=== PATIENT | male | born 1970 | race Caucasian/White ===

== ENCOUNTER 2019-04-21 09:32 | Emergency (ER) | payer OTHER, SELFPAY ==
[2019-04-21 09:37] VITALS: BP 131/79; PULSE 73; RESP 16; TEMP 36.7; O2SAT 98
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
== END 2019-04-21 10:21 | disposition home or self-care (01) ==
PROVIDERS: Emergency Provider Student in an Organized Health Care Education/Training Program; PCP Family Medicine
DX: T22.231A Burn of second degree of right upper arm, initial encounter (principal); T59.891A Toxic effect of other specified gases, fumes and vapors, accidental (unintentional), initial encounter; Y99.0 Civilian activity done for income or pay
CPT/HCPCS: 99282

== ENCOUNTER 2020-05-03 09:16 | Day surgery (SDC) | payer BC, SELFPAY ==
--- NOTE | 2020-05-03 06:55 | COLE_ITS ---
Date of service: 05/03/20 Time of Service: 10:15 Colonoscopy Report Date of procedure: 05/03/20 Pre-op diagnosis general: screening colonoscopy Post-op diagnosis procedure note: same Procedure: Colonoscopy Surgeon: Rita Mishra Anesthesia proc note operative: other (General/ASA 1/Nick Sanchez, CECELIA) Estimated blood loss (mL): 0 Pathology: none sent Complications: None Disposition: same day Indications: The patient is here for Colonoscopy pre-op. He has no family history of colon cancer. He has not had any bowel habit changes. -Discussed colonoscopy bowel prep as well as the procedure. Discussed possible complications of the procedure to include bleeding, pain, perforation, missed small lesion/polyp, sore throat, aspiration and adverse reaction to the medications. Questions were answered to patient?s satisfaction. No guarantees were implied or given. Prep: Miralax/Dulcolax Procedure Start Time: 10:15 Procedure End Time: 10:37 Retraction Time: 15 minutes Findings: Normal Colonoscopy Procedure Description: After informed consent was obtained the patient was taken to the procedure room and placed in a left decubitous position. Monitors were applied and a time out was done. The patients name, date of , proc edure, allergies to medications and metal in their body was reviewed. The patient was then sedated. Once sedated and comfortable a rectal exam was done. External exam was normal. Internal exam revealed a normal sphincter tone and no palpable masses. The prostate felt smooth. The scope was then introduced and retro-flexed. No internal hemorrhoids were identified. The scope was then advanced to the cecum without difficulty. The ileocecal valve and appendiceal orifice were identified. The prep was adequate. The scope was then slowly retracted over 15 minutes back into the rectum. There were no polyps and no diverticula. The scope was removed and the patient was woken up and taken back to Same day surgery in stable condition. The patient tolerated the procedure well and there were no immediate complications. Follow up: The patient should follow up in 10 years unless they develop changes in bowel habits or other new gastrointestinal complaints.
--- NOTE | 2020-05-03 06:57 | W.PM.DSUDISC ---
Discharge Plan Disposition Patient Disposition: HOME Condition: Good Discharge Details Reason For Visit: Colonoscopy Attending Provider: Rita Mishra Primary Care Provider: Madelyn Hutson Home Meds and New Rx's Prescriptions: Continued ibuprofen [Advil] 200 MG tablet 1 tab PO PRN PRNRF: 0 Discontinued polyethylene glycol 3350 17 gram/dose powder 238 g PO ONCE Qty: 238 RF: 0 bisacodyl [Dulcolax (bisacodyl)] 5 mg tablet,delayed release (DR/EC) 5 mg PO ONCE Qty: 4 RF: 0 Discharge Instructions Additional Instructions: Findings: Normal colonoscopy Follow up: 10 years Please call if you develop: fevers >101.5 Nausea or Vomiting Abdominal pain that is not transient DAY SURGERY UNIT POST ENDOSCOPY INSTRUCTIONS 1. Because there will be medication in your system for the next 24 hours, you may feel a little sleepy. Your coordination will be affected. Therefore: a. Do not drive or operate dangerous equipment for 24 hours. b. Do not drink alcohol beverages for 24 hours (not even beer). c. Plan to go home and rest for the day. 2. Generally there are no restrictions on your activity after a day or so has gone by, but you may feel a bit fatigued for a few days. 3 After you arrive home you may have a light meal and return to a normal diet as you can tolerate it without feeling sick to your stomach. 4. After surgery, you may feel pain or discomfort. This should be only transient, but if it persists please contact your doctor. 5. If there are any questions regarding the findings of your procedure, please feel free to contact your doctor. 6. If you are unable to contact your doctor with a problem, contact the hospital at [phone]. 7. Continue all your regular medications unless directed otherwise. I understand the above instructions and have no questions. Signature of Patient or Responsible Adult Escort Date/Time Name of Responsible Adult Escort Signature of Nurse Date/Time Stand Alone Forms: Mary Almodovar (DSU) Activity:: Activity as Tolerated Diet:: As Tolerated Discharge Orders Discharge Orders: Discharge Order (Routine); Ordered 05/03/20 Ordered By: Rita Msihra
[2020-05-03 09:18] VITALS: BP 129/79; PULSE 70; RESP 20; TEMP 37.1; O2SAT 96
[2020-05-03] MEDS: Lactated Ringers 1,000 ML 80 ML IV (09:37)
[2020-05-03 11:10] VITALS: BP 116/58; PULSE 58; RESP 18; TEMP 36.7; O2SAT 99
== END 2020-05-03 11:20 | disposition home or self-care (01) ==
LOC: SUR 09:16
PROVIDERS: Visit Provider Surgery
PROC: 0DJD8ZZ Inspection of Lower Intestinal Tract, Via Natural or Artificial Opening Endoscopic (ICD-10-PCS; CPT 45378; principal; 2020-05-03 10:45)
DX: Z12.11 Encounter for screening for malignant neoplasm of colon (principal)
CPT/HCPCS: 45378; J2001

== ENCOUNTER 2021-05-06 01:52 | Outpatient (CLI) | payer BC, SELFPAY ==
[2021-05-06 09:40] LABS: ALT 31 U/L (16-63); AST 17 U/L (15-37); Albumin 4.3 g/dL (3.4-5.0); Alkaline Phosphatase 67 U/L (46-116); Anion Gap 9.6 mmol/L (3-11); BUN 18 mg/dL (7-18); CO2 28.4 mmol/L (21.0-32.0); CREATININE 1.1 mg/dL (0.70-1.30); Calcium 8.7 mg/dL (8.5-10.1); Calculated LDL 94 mg/dL (<100); Chloride 105 mmol/L (98-107); Cholesterol 152 mg/dL (<200); Glucose 94 mg/dL (74-106); HDL Cholesterol 43 mg/dL (40-60); Potassium 4.6 mmol/L (3.5-5.1); Sodium 143 mmol/L (136-145); Total Protein 6.9 g/dL (6.4-8.2); Triglyceride 77 mg/dL (<150)
== END 2021-05-06 01:53 | disposition home or self-care (01) ==
LOC: LBO 01:52
DX: Z13.220 Encounter for screening for lipoid disorders (principal); Z00.00 Encounter for general adult medical examination without abnormal findings
CPT/HCPCS: 36415; 80053; 80061

== ENCOUNTER 2021-05-06 02:29 | Outpatient (CLI) | payer BC, SELFPAY ==
--- NOTE | 2021-05-06 06:45 | DI.RAD_ITS ---
Exam(s) XR SHOULDER LT COMPLETE 2+V EXAM: XR SHOULDER LT COMPLETE 2+V CLINICAL HISTORY: pain with radiating numbness and tingling,M25.512. TECHNIQUE: 2D digital imaging was performed of the left shoulder. Five images were obtained. AP in ternal and external, Grashey, Y-view and axillary views were obtained. COMPARISON: No exams were available for comparison FINDINGS: BONES: No acute fracture is present. No bony destructive lesion is seen. JOINTS: No dislocation present. Mild degenerative changes are seen at the acromioclavicular joint. SOFT TISSUE: Normal. IMPRESSION: Mild degenerative changes of the AC joint. DATA REPOSITORY: RADIATION DOSE DELIVERED:
== END 2021-05-06 02:49 ==
DX: M25.512 Pain in left shoulder (principal); M19.012 Primary osteoarthritis, left shoulder
CPT/HCPCS: 73030

== ENCOUNTER → 2022-01-06 15:44 | Outpatient (CLI) | payer OTHER, SELFPAY ==
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
== END ==
PROVIDERS: Visit Provider Family Medicine
DX: M25.561 Pain in right knee (principal); M25.461 Effusion, right knee; M77.8 Other enthesopathies, not elsewhere classified
CPT/HCPCS: 73562

== ENCOUNTER → 2022-01-20 00:46 | Outpatient (CLI) | payer OTHER, SELFPAY ==
--- NOTE | 2022-01-20 07:45 | DI.MRI_ITS ---
Exam(s) MR LOWER JOINT RT WO EXAM: MR LOWER JOINT RT WO CLINICAL HISTORY: pain, decrease ROM, moderate effusion,injury,? meniscal injury,m25.561, TECHNIQUE: Multiplanar multisequence MRI was performed.. COMPARISON: No exams were available for comparison FINDINGS: MR examination of the knee was performed according to the usual protocol. There is a moderate-sized knee joint effusion period. . Medial tibiofemoral joint: The articular cartilage of the femur and tibia appears mildly thinned. Th ere are moderate marginal osteophytes. There are some vertical clefts of the articular cartilage of the medial femoral condyle centrally period. The meniscus is deficient presumably representing a chr onic tear and the meniscus is displaced peripherally period. The medial collateral ligament appears intact. No posteromedial corner injury seen. Lateral tibiofemoral joint: The articular cartilage of the femur and tibia appears mildly thinned. T he meniscus and attachments appear intact. The lateral collateral ligament complex and posterolatera l corner structures appear intact. Patellofemoral joint and extensor mechanism: The articular cartilage of the patellofemoral joint is m arkedly abnormal with large bare areas of the lateral aspect of the patella and to a lesser degree of the medial aspect of patella. Trochlear cartilage is thinned and irregular. There is abnormal subc hondral marrow signal of the trochlea and patella. There is minimal lateral subluxation of the licea la. There are prominent marginal osteophytes of the patella and femur period. The superior and infe rior patellar fat pads show abnormal signal. There is an apparent small loose osseous body in the kn ee joint anteriorly.. The quadriceps tendon and patellar tendon appear intact with no evidence of a tear or significant shauna ma. The medial and lateral retinacula appear intact. Cruciate ligaments: Cruciate ligaments and attachments appear normal with no evidence of a tear. Tibiofibular joint: No specific abnormality involving the tibiofibular joint. IMPRESSION: Severe DJD of patellofemoral joint. Moderate degenerative changes of medial tibiofemoral joint. Medial meniscal chronic tear with deficient meniscus. Mild DJD medial tibiofemoral joint. 10 millimeter diameter loose joint body projected anterior to the intercondylar eminence of the tibia . DATA REPOSITORY:
== END ==
PROVIDERS: Visit Provider Family Medicine
DX: M23.91 Unspecified internal derangement of right knee (principal); M17.11 Unilateral primary osteoarthritis, right knee; S83.241A Other tear of medial meniscus, current injury, right knee, initial encounter; M23.41 Loose body in knee, right knee; X58.XXXA Exposure to other specified factors, initial encounter
CPT/HCPCS: 73721

== ENCOUNTER 2024-01-12 05:01 | Emergency (ER) | payer BC, SELFPAY ==
[2024-01-12] VITALS (27 sets, daily range): BP systolic 92–148; BP diastolic 62–108; PULSE 56–75; RESP 9–18; TEMP 36.3; O2SAT 93–97
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
--- NOTE | 2024-01-12 05:18 | W.ED.GENAD ---
Discharge Plan Discharge Details Chief Complaint: Nk/Back Pain Clinical Impression: Back pain Primary Care Provider: Dandy Faust ED Provider: Thanh Fortune Home Meds and New Rx's Prescriptions: No Action ibuprofen [Advil] 200 MG tablet 1 tab PO PRN PRN HPI General Date/Time Provider Initiated Documentation: 01/12/24 05:04. HPI Narrative: This is a pleasant 53-year-old male with no significant past medical history who presents today for evaluation of back pain. Patient states that 2 and half days ago he was lifting up his 4 garrison while also twisting and heard a snap and pop in his right lower back. He had immediate pain. 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 The pain continued to worsen. It is worsened with any type of movement. It is worsened with movement of his legs. He describes it as a aching throbbing Dulle pain in his right lower back. Patient denies any saddle anesthesia, numbness or tingling in the groin, change in sensation when wiping. Patient denies any change in sensation during sexual intercourse, difficulty achieving or maintaining an erection or ejaculation, bowel or bladder incontinence, leakage, or retention. Patient denies any weakness in the lower extremities, atypical falls or imbalance. He has been taking Tylenol and Motrin but this has not been helping the pain at all. He denies any other complaints at this time. No other modifying factors. Related Data Home Medications Medication Instructions Recorded Confirmed ibuprofen 200 mg tablet (Advil) 1 tab PO PRN PRN 05/10/15 01/12/24 Allergies Allergy/AdvReac Type Severity Reaction Status Date / Time No Known Allergies Allergy Verified 01/12/24 05:13 General Stated Complaint: Nk/Back Pain NAVIN: 3 Review of Systems All systems reviewed & are unremarkable except as noted in HPI and below Exam Narrative Exam Narrative: 1.Const: Well-nourished, Well-developed, appearing stated age 2.Eyes: PERRL, no conjunctival injection, and symmetrical lids. 3.ENT: Atraumatic external nose and ears. Moist MM. Neck: Symmetric, trachea midline, No thyromegaly. 4.CVS: +S1/S2, No murmurs or gallops. Peripheral pulses 2+ and equal in all extremities. Brisk capillary refill in all extremities. 5.RESP: Unlabored respiratory effort. Clear to auscultation bilaterally. No wheezes rales or rhonchi 6.GI: Soft, Nontender/Nondistended, No hepatosplenomegaly. No guarding or rebound. 7.MSK: Normocephalic/Atraumatic, Extremities w/o deformity or ttp No cyanosis or clubbing, Normal movement of all extremities. No midline tenderness to palpation over the CTLS spine. Pain in the lower back slightly improved with palpation of the paraspinal musculature, paraspinal musculature on the right is notably tense and spasmed. Particularly around no to L3 and L4 normal ROM in flexion, extension, side bend, and rotation. Patient has +5 out of 5 strength in the lower extremities in dorsiflexion and plantarflexion, knee flexion and extension, hip flexion and extension. Normal strength for dorsiflexion and plantar flexion of the great toe bilaterally. There is +2 over 2 dorsalis pedis pulses bilaterally. There is normal sensation to the skin with light touch at the foot, knee, and hip. Normal saddle sensation. Good sensation over the deep sural nerve area bilaterally. Rectal exam demonstrates good rectal tone with excellent leann-rectal sensation. Reflexes are +2 over 4 in the patellar reflex bilaterally. +5 out of 5 strength in the medial, ulnar, radial nerve distribution bilaterally in the hands as well as intact light touch sensation to these dermatomes on the hands 8.Skin: Warm, Dry. No rashes or lesions. 9.Neuro: chief arson division II-XII grossly intact. Sensation grossly intact, no focal neurologic deficits. 10.Psych: (AAO) x3. Appropriate mood and affect Course Vital Signs Vital signs: Vital Signs Temperature 36.3 C L 01/12/24 05:05 Pulse 73 01/12/24 05:05 Respiratory Rate 18 01/12/24 05:05 Blood Pressure 148/108 H 01/12/24 05:05 Pulse Oximetry 97 01/12/24 05:05 Temperature 36.3 C L 01/12/24 05:05 Temperature Source Temporal Artery Scan 01/12/24 05:05 Pulse 73 01/12/24 05:05 Respiratory Rate 18 01/12/24 05:05 Respiratory Effort Normal 01/12/24 05:11 Blood Pressure 148/108 H 01/12/24 05:05 Pulse Oximetry 97 01/12/24 05:05 Oxygen Delivery Method Room Air 01/12/24 05:05 Oxygen Flow Rate 0 01/12/24 05:05 Medical Decision Making This is a pleasant 53-year-old male with no significant past medical history who presents today for evaluation of back pain. Patient states that 2 and half days ago he was lifting up his 4 garrison while also twisting and heard a snap and pop in his right lower back. He had immediate pain. 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 Additionally the patient did go to see the chiropractor but even after manipulation this did not improve his symptoms. The pain continued to worsen. It is worsened with any type of movement. It is worsened with movement of his legs. He describes it as a aching throbbing Dulle pain in his right lower back. Patient denies any saddle anesthesia, numbness or tingling in the groin, change in sensation when wiping. Patient denies any change in sensation during sexual intercourse, difficulty achieving or maintaining an erection or ejaculation, bowel or bladder incontinence, leakage, or retention. Patient denies any weakness in the lower extremities, atypical falls or imbalance. He has been taking Tylenol and Motrin but this has not been helping the pain at all. He denies any other complaints at this time. No other modifying factors. Exam demonstrates an acutely in pain male, notable right paraspinal muscle spasm in the lumbar paraspinal region. No saddle anesthesia or signs and symptoms concerning for cauda equina syndrome. Differential is highest for bulging disc, less likely fracture, most likely paraspinal muscle spasm. Will give Valium, Toradol, over Mab Lidoderm patch small dose of cyclobenzaprine. Will get imaging to evaluate for osseous or large disc abnormality, will monitor closely and reassess. 7:45 AM Patient feels much better after muscle relaxants NSAIDs Lidoderm patch. He still has some mild pain. Pending CT results. Patient still does not show any evidence of cauda equina syndrome. Patient will be signed out to my colleague Dr. Marlow for follow-up on CT images. Quality:SDOH Health Related Social Needs: No Data to Display PFSH All Active Problems (Updated 01/12/24 @ 07:45 by Thanh Fortune DO) Back pain (Acute) Primary osteoarthritis of left knee (Acute) Puncture wound of plantar aspect of foot (Acute) Arthritis of knee, right (Acute) Arthritis of carpometacarpal (CMC) joint of right thumb (Acute) Shoulder pain, left (Acute) 04/2021 - Numbness & tingling left ring & middle finger, some in thumb Sensory hearing loss, bilateral (Acute 11/17/13) Allergic rhinitis (Acute 07/14/13) Lip lesion (Acute) Medical History Allergic fungal sinusitis (06/30/13) History of deviated nasal septum (04/20/14) surgery Surgical History Hx of arthroscopy of knee hx of bilat meniscus sx H/O shoulder surgery (04/20/14) right Status post knee surgery (04/20/14) bilateral Family History Mother No problems noted. Father Hyperlipidemia Sister No problems noted. Maternal Grandfather Diabetes Heart disease Lung cancer Smoker Paternal Grandfather Cancer Maternal Grandmother No problems noted. Paternal Grandmother Cancer Son No problems noted. Daughter No problems noted. Social History Smoking/Tobacco Use Status: Never Smoking risk assessment performed?: Yes Alcohol Intake: current Drug use: Never Substance use type: does not use Caregiver/Support person: No Household members: spouse Housing: house Communication Needs: None Do you need help understanding health information?: Rarely Pets and animals: Yes Pets and animals: farm animals Sexually active: Yes Do you think of yourself as: straight/heterosexual Current gender identity: male What is your relationship status?: How often do you talk on the phone with friends or family?: three or more times per week How often do you get together with friends or relatives?: twice per week How often do you attend worship or pentecostalism services?: 4 or more times per year Do you belong to any clubs or organized social groups?: yes Panel score (0-1 are the most socially isolated patients): 4 What type of physical activity do you participate in: walking and other Details: hiking, work Duration: 30-45 minutes/day Frequency: daily Deloris/Voodoo: Yazidism Seatbelt use: always Drive intox or ride w/intox pickup driver: No Do you feel safe at home: Yes Do you feel safe in your relationship?: Yes
[2024-01-12] MEDS: ACETAMINOPHEN 1,000 MG/100 ML BTL 400 MG IVPB (05:28)
[2024-01-12] MEDS: diazePAM 10 MG/2 ML SYR 5 MG IVP (05:29)
[2024-01-12] MEDS: Cyclobenzaprine 10 MG TAB PO (05:29)
[2024-01-12] MEDS: Lidocaine 5% Patch 1 PATCH TP (05:30)
[2024-01-12] MEDS: Ketorolac 15 MG/ML VIAL IVP (05:30)
[2024-01-12] MEDS: methylPREDNISolone SUCC 125 MG VIAL IVP (05:31)
[2024-01-12] MEDS: diazePAM 10 MG/2 ML SYR (06:25)
[2024-01-12] MEDS: MORPHine 4 MG/ML SYR (06:25)
--- NOTE | 2024-01-12 08:23 | DI.VRAD_ITS ---
PROCEDURE INFORMATION: Exam: CT Thoracic Spine Without Contrast Exam date and time: 01/12/2024 6:00 AM Age: 53 years old Clinical indication: Low back pain; Pain in thoracic spine; Additional info: Twist/pull right back injury w/ pop, eval disc/ml TECHNIQUE: Imaging protocol: Computed tomography of the thoracic spine without contrast. COMPARISON: No relevant prior studies available. FINDINGS: Bones/joints: No acute fracture. Normal alignment. No significant disc bulge or herniation. No severe spinal canal stenosis. No significant neural foraminal narrowing. Soft tissues: Unremarkable. Vasculature: Aneurysmal dilatation of the ascending thoracic aorta measuring 4.5 cm. IMPRESSION: 1. No acute fracture or traumatic listhesis. 2. Aneurysmal dilatation of the ascending thoracic aorta measuring 4.5 cm. Recommend correlation with nonemergent CTA chest if not previously performed. PROCEDURE INFORMATION: Exam: CT Lumbar Spine Without Contrast Exam date and time: 01/12/2024 6:00 AM Age: 53 years old Clinical indication: Low back pain; Pain in thoracic spine; Additional info: Twist/pull right back injury w/ pop, eval disc/ml TECHNIQUE: Imaging protocol: Computed tomography of the lumbar spine without contrast. COMPARISON: No relevant prior studies available. FINDINGS: Bones/joints: No acute fracture. Normal alignment. Broad-based L4-L5 disc bulge. Moderate to severe bilateral L4-L5 neural foraminal stenosis. Moderate spinal canal stenosis at the level of L4-L5. Soft tissues: Unremarkable. IMPRESSION: 1. No acute fracture or traumatic listhesis. 2. L4-L5 disc bulge with moderate to severe bilateral neural foraminal stenosis. Dictated and Authenticated by: Michelle Scott MD. Ordering:CHRISTY Law MD
--- NOTE | 2024-01-12 10:09 | ED.PROG_ITS ---
Date of service: 01/12/24 Time of Service: 10:09 Medical Decision Making Care was signed out by Dr. Fortune, please see his documentation regarding initial ED presentation course, plan at signout was to follow-up on CT imaging. CT of the thoracic and lumbar spine was interpreted by radiology: No acute fracture or traumatic listhesis. L4-L5 disc bulge with moderate to severe bilateral neural foraminal stenosis is noted. Incidental finding of aneurysmal dilatation of the ascending thoracic aorta measuring 4.5 cm. Recommend correlation with nonemergent CTA chest if not previously performed. Patient was reassessed. He notes pain is improved with medication. Results were discussed with the patient. Of note, patient is quite tall and has hyperflexibility of his digits. I am concerned about the potential for Marfan syndrome given findings on CT imaging. Plan for outpatient follow-up with PCP. Disposition decision was made weighing the risks and benefits of hospitalization versus outpatient treatment, the risk for further decompensation, and the patient's wishes. The patient was stable and requested discharge. Prior to discharge, my usual and customary return precautions were reviewed with the patient - this included follow-up instructions and reason to return to the emergency department if condition worsens, does not improve as expected, or other new concerns arise. Lab Data Lab results reviewed: Yes I reviewed the patient's lab results. Quality:[facility] Health Related Social Needs: No Data to Display Sign Out Sign Out Data: Sign Out Comment: Back pain x 2 days, notable paraspinal spasms. Much improved after NSAIDs muscle relaxants and steroids. Pending CT scan. No evidence of cauda equina syndrome. Last updated by Thanh Fortune DO at 01/12/24 07:47 Discharge Plan Disposition Patient Disposition: Home Condition: Stable Discharge Details Clinical Impression: Acute low back pain, Bulging of intervertebral disc between L4 and L5, Aneurysm of thoracic aorta Primary Care Provider: Dandy Faust ED Provider: Maximino Marlow Home Meds and New Rx's Prescriptions: New diazepam [Valium] 5 mg tablet 5 mg PO BID PRN (Reason: muscle spasm) Qty: 14 0RF prednisone 20 mg tablet 20 mg PO DAILY Qty: 4 0RF Rx Instructions: start 01/13/24 Continued ibuprofen [Advil] 200 MG tablet 1 tab PO PRN PRN Discharge Instructions Instructions: Lumbar Disc Herniation (ED), Thoracic Aortic Aneurysm (ED), Acute Low Back Pain (ED) Additional Instructions: CT imaging of your lumbar spine revealed bulging disc herniation at L4-L5 with moderate to severe bilateral neural foraminal stenosis. Please avoid any activities that worsen pain over the next few weeks. Please take ibuprofen over the counter. Take 600mg by mouth every 6 hours as needed for pain. Please take acetaminophen (tylenol) - 650mg every 6 hours by mouth as needed for pain. Use lidocaine patches. Dose according to label. Take Valium as prescribed for muscle spasm. An incidental finding was noted on your CT imaging of a aneurysmal dilatation of the ascending thoracic aorta measuring 4.5 cm. It is recommended that you have close outpatient follow-up to include CTA imaging of the thorax. Please call your doctor on Sunday to arrange timely follow-up. Based on physical findings and this CT finding, I am concerned about the potential for Marfan syndrome. Please be sure to discuss this with your doctor. Please contact your primary care physician to arrange follow-up. Return to the ER immediately for any worsening or new concerning symptoms.
--- NOTE | 2024-01-12 10:30 | RT.EKG_ITS ---
APPROVED REPORT Exam: Resting ECG Reason for Exam: chest pain Patient Location: E HR:67 bpm ECG Measurements Heart Rate 67 AXIS ME 151 P 68 QRSd 116 QRS 16 QT 433 T 47 QTc 457 Conclusion Sinus rhythm...normal P axis, V-rate 60- 99 Nonspecific intraventricular conduction delay...QRSd >115mS, not LBBB/RBBB
--- NOTE | 2024-01-12 10:54 | NUR.NOTE ---
Referral faxed to PCP for disc herniation, low back pain, incidental finding on CT aneurysm aorta, for this week. Nursing Note:
== END 2024-01-12 10:46 | disposition home or self-care (01) ==
PROVIDERS: Emergency Provider Student in an Organized Health Care Education/Training Program; PCP Nurse Practitioner Family
DX: M48.061 Spinal stenosis, lumbar region without neurogenic claudication (principal)
CPT/HCPCS: 00123; 93005; 96374; 96375; 99285; 72128; 72131; 93010; 99284; J0131; J1885; J2270; J2919; J3360

== ENCOUNTER 2024-01-14 13:21 | Outpatient (REF) | payer BC, SELFPAY ==
[2024-01-14 19:41] LABS: ALT 45 U/L (16-63); AST 17 U/L (15-37); Albumin 3.9 g/dL (3.4-5.0); Alkaline Phosphatase 63 U/L (46-116); Anion Gap 8.2 mmol/L (3-11); BUN 15 mg/dL (7-18); Bilirubin, Total 0.6 mg/dL (0.2-1.0); CO2 26.8 mmol/L (21.0-32.0); Calcium 8.7 mg/dL (8.5-10.1); Calculated LDL 83 mg/dL (<100); Chloride 106 mmol/L (98-107); Cholesterol 162 mg/dL (<200); Estimated GFR 89.44 (mL/min/1.73m2); Glucose 95 mg/dL (74-106); HDL Cholesterol 53 mg/dL (40-60); Potassium 4.5 mmol/L (3.5-5.1); Sodium 141 mmol/L (136-145); Total Protein 6.4 g/dL (6.4-8.2); Triglyceride 130 mg/dL (<150)
[2024-01-15 19:17] LABS: HIV-1/2 Ag & Ab Screen Negative (Negative)
[2024-01-15 19:20] LABS: Hepatitis C Ab w Rflx HCV PCR Negative (Negative)
[2024-01-15 20:26] LABS: PSA, Screening 0.2 ng/mL (<=3.5)
== END 2024-01-14 13:22 | disposition home or self-care (01) ==
LOC: LBN 13:21
PROVIDERS: PCP Nurse Practitioner Family; Visit Provider Nurse Practitioner Family
DX: Z13.220 Encounter for screening for lipoid disorders (principal); Z11.4 Encounter for screening for human immunodeficiency virus [HIV]; Z11.59 Encounter for screening for other viral diseases; Z12.5 Encounter for screening for malignant neoplasm of prostate
CPT/HCPCS: 80053; 80061; 84153; 86803; 87389

== ENCOUNTER 2025-02-05 11:08 | Outpatient (REF) | payer BC, SELFPAY ==
--- NOTE | 2025-02-05 09:45 | SKI_PTH ---
PATIENT: Bert Alvarez LOC: [facility] U#:[id number] AGE/SX: 54/M ROOM: RE02/05/[address]: Dandy Loja DNP : 1970 BED: DIS: 02/05/2025 SPEC #: [id number] RECD: 02/05/25 12:58 STATUS: BRENNAN RECatalina #: [id number] RUTH: 02/05/25 09:[address]: Dandy Faust DEPT: Surgical Specimen RECD BY: Tammy Horan Tissues: 1 - SKIN BIOPSY(SHAVE/PUNCH) Procedures: SKIN LEVEL 4 SPECIAL STAIN 1 Comments: [id number]
== END 2025-02-05 11:09 | disposition home or self-care (01) ==
LOC: LBN 11:08
PROVIDERS: PCP Nurse Practitioner Family; Visit Provider Nurse Practitioner Family
DX: L30.8 Other specified dermatitis (principal); L40.0 Psoriasis vulgaris
CPT/HCPCS: 88305; 88312

== ENCOUNTER 2025-02-16 18:13 | Outpatient (REF) | payer BC, SELFPAY ==
[2025-02-18 11:00] LABS: HSV Type 2 Ab, IgG Negative (Negative)
[2025-02-18 11:35] LABS: Syphilis Serology (RPR) Negative (Negative)
== END 2025-02-16 18:14 | disposition home or self-care (01) ==
LOC: LBN 18:13
PROVIDERS: PCP Nurse Practitioner Family; Visit Provider Physician Assistant
DX: K13.0 Diseases of lips (principal)
CPT/HCPCS: 86592; 86695; 86696

== ENCOUNTER 2025-03-19 17:49 | Outpatient (REF) | payer BC, SELFPAY | END 2025-03-19 17:50 | disposition home or self-care (01) | LOC: LBN 17:49 | PROVIDERS: PCP Nurse Practitioner Family; Visit Provider Physician Assistant | DX: L02.91 Cutaneous abscess, unspecified (principal); L02.211 Cutaneous abscess of abdominal wall | CPT/HCPCS: 87077; 87070; 87186; 87205 ==